=== PATIENT | female | born 1970 | race Hispanic/Latino ===

== ENCOUNTER 2016-12-30 12:47 | Outpatient (CLI) | payer OTHER ==
--- NOTE | 2016-12-30 13:42 | XRay Report ---
Left foot 3 views: History: Foot pain. Findings: Mild hallux valgus. No fracture dislocation or soft tissue calcification. Large spur posterior inferior calcaneum. Impression: Findings as detailed above. No acute changes.
== END 2016-12-30 12:48 | disposition home or self-care (01) ==
LOC: SPVIMAG 12:47
PROVIDERS: ATTEND Orthopaedic Surgery Sports Medicine
DX: M20.12 Hallux valgus (acquired), left foot (principal); M77.32 Calcaneal spur, left foot